=== PATIENT | female | born 1965 ===

== ENCOUNTER 2018-08-07 15:48 | Outpatient (CLI) | payer OTHER | END 2018-08-07 15:49 | disposition home or self-care (01) | LOC: C.LAB 15:48 | DX: Z12.4 Encounter for screening for malignant neoplasm of cervix (principal); Z11.51 Encounter for screening for human papillomavirus (HPV) ==

== ENCOUNTER 2018-08-14 10:24 | Outpatient (CLI) | payer OTHER | END 2018-08-14 10:25 | disposition home or self-care (01) | LOC: C.MAMMO 10:24 | DX: Z12.31 Encounter for screening mammogram for malignant neoplasm of breast (principal) ==